=== PATIENT | male | born 1955 | race Caucasian/White ===

== ENCOUNTER 2016-12-06 16:53 | Emergency (ER) | payer MEDICAID, OTHER ==
[2016-12-06] MEDS ORDERED: HYDROcodone/ACETAMIN 5-325 MG* 1 TAB PO ONE (21:49)
--- NOTE | 2016-12-06 21:52 | ED ---
Skin Complaint - HPI Summary HPI Summary: Facial/head pain since Friday - burning worse at night. Blisters and scabs - newest blister was today. Denies ocular pain, change in vision. Not sure if he' s had chix pox but is from a family of 9 kids and sister who is w/ him today claims she had them. - History of Current Complaint Chief Complaint: EDRashSkinAbscess Time Seen by Provider: 12/06/16 18:33 Stated Complaint: FACIAL SWELLING Pain Intensity: 0 - Allergy/Home Medications Allergies/Adverse Reactions: Allergies Allergy/AdvReac Type Severity Reaction Status Date / Time No Known Allergies Allergy Verified 12/26/15 19:51 Home Medications: Home Medications Atorvastatin* [Lipitor*] 40 mg PO DAILY 12/06/16 [History Confirmed 12/06/16] amLODIPine TAB* [Norvasc 5 mg TAB*] 5 mg PO DAILY 12/06/16 [History Confirmed ] PMH/Surg Hx/FS Hx/Imm Hx Cardiovascular History: Reports: Hx Hypertension Infectious Disease History: No Infectious Disease History: Denies: Traveled Outside the [place] in Last 30 Days - Family History Known Family History: Positive: Unknown - Social History Alcohol Use: None Substance Use Type: Reports: None Smoking Status (MU): Never Smoked Tobacco Physical Exam Vital Signs On Initial Exam: Initial Vitals Temp Pulse Resp BP Pulse Ox 98.2 F 102 20 163/84 95 12/06/16 17:00 12/06/16 17:00 12/06/16 17:00 12/06/16 17:00 12/06/16 17:00 Procedures - Eye Procedure Alcaine Drops Administered: No - tetracaine Eye Irrigated w/ Saline (ccs): 3 - viewed w/ fluouresceine - no lesions Diagnostics - Vital Signs Vital Signs Temp Pulse Resp BP Pulse Ox 12/06/16 17:04 98.9 F 100 20 163/84 95 12/06/16 17:00 98.2 F 102 20 163/84 95 - Laboratory Lab Statement: Any lab studies that have been ordered have been reviewed, and results considered in the medical decision making process. Course/Dx - Diagnoses Provider Diagnoses: Herpes zoster virus infection of face and ear nerves - Physician Notifications Discussed Care Of Patient With: Dr. Belcher - no steroid eye drops necessary - f/u Friday Discharge - Discharge Plan Condition: Stable Disposition: HOME Prescriptions: HYDROcodone/ACETAMIN 5-325 MG* [[place] 5-325 TAB*] 1 tab PO Q6H PRN #20 tab MDD 4 PRN Reason: Pain ValACYclovir (*) [Valtrex 1 GM(*)] 1 gm PO TID #19 tab Patient Education Materials: Selena (ED) Referrals: Andrew Belcher MD [Medical Doctor] - Aravind Burr NP [Primary Care Provider] - Additional Instructions: Follow-up with eye doctor Friday - call in the morning at 8am to schedule your appointment Complete anti-viral medication (valtrex) *If your eye becomes painful, red, you have a change in vision, call Dr. Belcher and/or return to ED
[2016-12-06 22:19] VITALS: BP 161/89
[2016-12-06] MEDS ORDERED: ValACYclovir (*) 1 GM TAB PO ONE ×2 (23:15→23:16)
[2016-12-07] MEDS ORDERED: ValACYclovir (*) 1 GM TAB PO ONE ×2 (21:27→21:29)
== END 2016-12-06 22:19 | disposition home or self-care (01) ==
LOC: ED 16:53
DX: B02.9 Zoster without complications (principal); R51 Headache
CPT/HCPCS: 99282; A9270-GY

== ENCOUNTER 2020-06-21 12:01 | Inpatient (IN) ==
[2020-06-21 14:16] LABS: ABS Basophils 0.1 10^3/ul (0-0.2); ABS Lymphocytes 0.7 10^3/ul (1.0-4.8); ABS Monocytes 0.6 10^3/ul (0-0.8); ABS Neutrophils 5.6 10^3/ul (1.5-7.7); Eosinophil % 0.5 %; Hematocrit 41 % (42-52); Hemoglobin 14.5 g/dL (14.0-18.0); Lymphocyte % 10.2 %; Mean Corpuscular HGB Conc 36 g/dL (31-36); Mean Corpuscular Hemoglobin 30 pg (27-31); Mean Corpuscular Volume 84 fL (80-94); Mean Platelet Volume 9.7 fL (7.4-10.4); Platelet Count 237 10^3/uL (150-450); Red Blood Count 4.83 10^6 /uL (4.18-5.48); Red Cell Distribution Width 13 % (10-15)
[2020-06-21 14:46] LABS: Albumin 3.5 g/dL (3.2-5.2); Albumin/Globulin Ratio 1.1 (1-3); BUN/Creatinine Ratio 15.1 (8-20); C Reactive Protein 103.32 mg/L (<8.01); Calcium 9.2 mg/dL (8.6-10.3); EGFR African American 108.7 (>60); EGFR Non-African American 89.8 (>60); Globulin 3.1 g/dL (2-4); Potassium 3.5 mmol/L (3.5-5.0); Total Bilirubin 0.9 mg/dL (0.2-1.0); Total Protein 6.6 g/dL (6.4-8.9)
[2020-06-21] MEDS ORDERED: Enoxaparin 40 MG/0.4 ML SYR SUBCUT SCH (21:00)
[2020-06-21 22:43] LABS: Urine Appearance Clear; Urine Bilirubin Negative (Negative); Urine Blood Negative (Negative); Urine Color Yellow; Urine Glucose Negative (Negative); Urine Ketones Negative (Negative); Urine Nitrite Negative (Negative); Urine Protein 1+(30 mg/dL) (Negative); Urine Specific Gravity 1.013 (1.010-1.030); Urine Urobilinogen Positive (Negative)
[2020-06-21 22:47] LABS: Urine Bacteria Absent (Absent); Urine Red Blood Cell Trace(0-2/hpf) (Absent); Urine Squamous Epithelial Cell Present (Absent); Urine White Blood Cell Trace(0-5/hpf) (Absent)
[2020-06-22] MEDS ORDERED: Polyethylene Glycol 3350 17 GM PACKET PO PRN (00:33)
[2020-06-22] MEDS ORDERED: Dextrose 50% Syringe 50 ml 25 GM/50 ML SYRINGE IV PUSH PRN (00:33)
[2020-06-22 14:46] LABS: INR 1.27 (0.82-1.09)
[2020-06-22] MEDS: Senna TAB 8.6 mg TAB PO PRN (20:12)
[2020-06-23 05:09] LABS: ABS Basophils 0.1 10^3/ul (0-0.2); ABS Eosinophils 0.1 10^3/ul (0-0.6); ABS Lymphocytes 0.7 10^3/ul (1.0-4.8); ABS Monocytes 0.7 10^3/ul (0-0.8); Eosinophil % 1.4 %; Hematocrit 41 % (42-52); Hemoglobin 13.8 g/dL (14.0-18.0); Lymphocyte % 10.6 %; Mean Corpuscular HGB Conc 34 g/dL (31-36); Mean Corpuscular Hemoglobin 29 pg (27-31); Mean Corpuscular Volume 85 fL (80-94); Mean Platelet Volume 9.6 fL (7.4-10.4); Platelet Count 266 10^3/uL (150-450); Red Blood Count 4.75 10^6 /uL (4.18-5.48); Red Cell Distribution Width 13 % (10-15); White Blood Count 6.4 10^3/uL (3.5-10.8)
[2020-06-23 05:28] LABS: BUN/Creatinine Ratio 16.7 (8-20); Calcium 9.2 mg/dL (8.6-10.3); EGFR African American 111.7 (>60); EGFR Non-African American 92.3 (>60); Potassium 3.8 mmol/L (3.5-5.0)
[2020-06-23] MEDS ORDERED: Famotidine IV 10 MG/ML 2 ml VIAL (20 mg) IV ONE (06:00)
[2020-06-23] MEDS ORDERED: Buffered Lidocaine 1% SYRIN 1 ml INTRADERM ONE (06:00)
[2020-06-23] MEDS ORDERED: Lactated Ringers 1000 ml BAG 1,000 ML IV SCH (06:00)
[2020-06-23] MEDS ORDERED: Vancomycin 1,000 MG VIAL ONE (07:20)
[2020-06-23] MEDS ORDERED: Gelfoam 12-7 ADSORBABL SPONGE ONE (07:20)
[2020-06-23] MEDS ORDERED: Thrombin 5,000 UNITS 1 APPLIC KIT - topical use - TOPICAL ONE (07:20)
[2020-06-23] MEDS ORDERED: Bupivacaine 0.5% SDV PF 30ML VIAL ONE (07:21)
[2020-06-23] MEDS ORDERED: Bacitracin OINTMENT TUBE ONE (07:21)
[2020-06-23] MEDS ORDERED: ceFAZolin 1 GM ADVAN 1 GM ADDV.VIAL IVPB ONE (07:21)
[2020-06-23] MEDS ORDERED: Bacitracin INJECTION 50,000 UNITS ONE (07:21)
[2020-06-23] MEDS ORDERED: Midazolam 5 mg/5 ml VIAL 1 mg/ml 5 ml VIAL (5 mg) ONE (07:29)
[2020-06-23] MEDS ORDERED: Propofol 10 MG/ML 20 ML BTL ONE (07:29)
[2020-06-23] MEDS ORDERED: Ketamine HCL 50 mg/ml 10 ml VIAL (500 MG) ONE (07:29)
[2020-06-23] MEDS ORDERED: Ondansetron 4 mg VIAL 2 MG/ML 2 ml VIAL ONE (07:29)
[2020-06-23] MEDS ORDERED: Rocuronium 50 mg VIAL 10 mg/ml 5 ml VIAL (50 mg) ONE ×2 (07:29→09:20)
[2020-06-23] MEDS ORDERED: Phenylephrine 40 mcg/mL 10mL (400mcg) SYRINGE ONE (07:29)
[2020-06-23] MEDS ORDERED: Lidocaine 2% PF 5 ML VIAL ONE (07:29)
[2020-06-23] MEDS ORDERED: fentaNYL 250 mcg/5 ml 50 MCG/ML 5 ml VIAL (250 MCG) ONE (07:29)
[2020-06-23] MEDS ORDERED: Dexamethasone IV 4 MG/ML VIAL 1 ml VIAL ONE (07:29)
[2020-06-23] MEDS ORDERED: ceFAZolin 2 GM PREMIX 2 GM/50 ML BAG IVPB ONE (07:30)
[2020-06-23] MEDS ORDERED: Famotidine IV 10 MG/ML 2 ml VIAL (20 mg) ONE (08:10)
[2020-06-23] MEDS ORDERED: EPHEDrine (Pressors) 50 MG/ML VIAL ONE (09:31)
[2020-06-23] MEDS ORDERED: Ondansetron 4 mg VIAL 2 MG/ML 2 ml VIAL IV PRN ×2 (11:14→12:51)
[2020-06-23] MEDS ORDERED: Naloxone 0.4 mg VIAL 0.4 mg/ml 1 ml VIAL IV PRN (11:14)
[2020-06-23] MEDS ORDERED: HYDROmorphone 1 MG/1 ML SYRINGE IV PRN (11:14)
[2020-06-23] MEDS ORDERED: fentaNYL 100 mcg/2 ml 50 MCG/ML VIAL IV PRN (11:14)
[2020-06-23] MEDS ORDERED: HYDROmorphone 1 MG/1 ML SYRINGE ONE (11:42)
[2020-06-23] MEDS ORDERED: Sugammadex 500 MG/5 ML 5 ml VIAL IV PUSH ONE (11:45)
[2020-06-23] MEDS ORDERED: fentaNYL 100 mcg/2 ml 50 MCG/ML VIAL ONE (12:00)
[2020-06-23] MEDS ORDERED: Magnesium Hydroxide LIQ 30 ML UDC PO PRN (12:38)
[2020-06-23] MEDS ORDERED: Morphine 2 MG/ML SYRINGE IV PRN (12:55)
[2020-06-23] MEDS ORDERED: NS 0.9% w/ 20 Meq KCL 1000 ml 1,000 ML IV SCH (13:00)
[2020-06-23] MEDS: Acetaminophen IV 1 GM/100ML 100 ML IVPB SCH ×2 (14:02→22:44)
[2020-06-23] MEDS: Orphenadrine Citrate INJ 30 mg/ml 2 ml VIAL (60 mg) IV SCH (14:51)
[2020-06-23] MEDS: ceFAZolin 2 GM PREMIX 2 GM/50 ML BAG IVPB SCH (17:46)
[2020-06-23] MEDS ORDERED: Albuterol 2.5mg/3 ml (0.083%) NEB.SOLN INH SCH (18:00)
[2020-06-23] MEDS: Albuterol 2.5mg/3 ml (0.083%) NEB.SOLN INH SCH (20:15)
[2020-06-23] MEDS: Polyethylene Glycol 3350 17 GM PACKET PO SCH (21:37)
[2020-06-24] MEDS: ceFAZolin 2 GM PREMIX 2 GM/50 ML BAG IVPB SCH ×2 (01:25→09:06)
[2020-06-24] MEDS: Albuterol 2.5mg/3 ml (0.083%) NEB.SOLN INH SCH ×2 (02:10→06:53)
[2020-06-24] MEDS: Orphenadrine Citrate INJ 30 mg/ml 2 ml VIAL (60 mg) IV SCH (02:40)
[2020-06-24 04:53] LABS: ABS Lymphocytes 0.5 10^3/ul (1.0-4.8); ABS Monocytes 0.6 10^3/ul (0-0.8); ABS Neutrophils 5.7 10^3/ul (1.5-7.7); Eosinophil % 0.2 %; Hematocrit 31 % (42-52); Hemoglobin 10.5 g/dL (14.0-18.0); Lymphocyte % 7.5 %; Mean Corpuscular HGB Conc 34 g/dL (31-36); Mean Corpuscular Hemoglobin 29 pg (27-31); Mean Corpuscular Volume 85 fL (80-94); Mean Platelet Volume 9.5 fL (7.4-10.4); Platelet Count 242 10^3/uL (150-450); Red Cell Distribution Width 13 % (10-15); White Blood Count 6.9 10^3/uL (3.5-10.8)
[2020-06-24 05:07] LABS: BUN/Creatinine Ratio 14.5 (8-20); Calcium 7.7 mg/dL (8.6-10.3); EGFR African American 113.2 (>60); EGFR Non-African American 93.6 (>60); Potassium 3.9 mmol/L (3.5-5.0)
[2020-06-24] MEDS: Acetaminophen IV 1 GM/100ML 100 ML IVPB SCH (05:47)
[2020-06-24] MEDS ORDERED: Albuterol 2.5mg/3 ml (0.083%) NEB.SOLN INH PRN (06:53)
[2020-06-24] MEDS: Enoxaparin 40 MG/0.4 ML SYR SUBCUT SCH (09:08)
[2020-06-24] MEDS: Polyethylene Glycol 3350 17 GM PACKET PO SCH ×2 (09:08→20:40)
[2020-06-24 11:28] LABS: C Reactive Protein 66.38 mg/L (<8.01)
[2020-06-24] MEDS: cefTRIAXone 1 gm/50 mL NS BAG 1 GM/50 ML BAG IVPB SCH (15:26)
[2020-06-25 05:29] LABS: ABS Eosinophils 0.1 10^3/ul (0-0.6); ABS Lymphocytes 0.7 10^3/ul (1.0-4.8); ABS Monocytes 0.7 10^3/ul (0-0.8); ABS Neutrophils 4.8 10^3/ul (1.5-7.7); Eosinophil % 1.1 %; Hematocrit 31 % (42-52); Hemoglobin 10.6 g/dL (14.0-18.0); Lymphocyte % 11.8 %; Mean Corpuscular HGB Conc 34 g/dL (31-36); Mean Corpuscular Hemoglobin 29 pg (27-31); Mean Corpuscular Volume 86 fL (80-94); Mean Platelet Volume 9.3 fL (7.4-10.4); Platelet Count 257 10^3/uL (150-450); Red Blood Count 3.62 10^6 /uL (4.18-5.48); Red Cell Distribution Width 13 % (10-15); White Blood Count 6.3 10^3/uL (3.5-10.8)
[2020-06-25 05:47] LABS: BUN/Creatinine Ratio 19.8 (8-20); Calcium 8.1 mg/dL (8.6-10.3); EGFR African American 116.5 (>60); EGFR Non-African American 96.2 (>60); Potassium 3.8 mmol/L (3.5-5.0)
[2020-06-25] MEDS: Polyethylene Glycol 3350 17 GM PACKET PO SCH ×2 (09:47→20:58)
[2020-06-25] MEDS: Enoxaparin 40 MG/0.4 ML SYR SUBCUT SCH (09:48)
[2020-06-25] MEDS: cefTRIAXone 1 gm/50 mL NS BAG 1 GM/50 ML BAG IVPB SCH (15:46)
[2020-06-26] MEDS: Polyethylene Glycol 3350 17 GM PACKET PO SCH ×2 (08:35→20:41)
[2020-06-26] MEDS: Enoxaparin 40 MG/0.4 ML SYR SUBCUT SCH (08:35)
[2020-06-26] MEDS: cefTRIAXone 1 gm/50 mL NS BAG 1 GM/50 ML BAG IVPB SCH (15:29)
[2020-06-26] MEDS: Senna TAB 8.6 mg TAB PO PRN (20:42)
[2020-06-26 22:18] LABS: Urine Appearance Cloudy; Urine Bilirubin Negative (Negative); Urine Blood 2+ (Negative); Urine Color Yellow; Urine Glucose Negative (Negative); Urine Ketones Negative (Negative); Urine Nitrite Negative (Negative); Urine Protein 1+(30 mg/dL) (Negative); Urine Specific Gravity 1.019 (1.010-1.030); Urine Urobilinogen Positive (Negative)
[2020-06-26 22:30] LABS: Urine Bacteria Absent (Absent); Urine Red Blood Cell 2+(6-10/hpf) (Absent); Urine White Blood Cell Trace(0-5/hpf) (Absent)
[2020-06-27] MEDS: Enoxaparin 40 MG/0.4 ML SYR SUBCUT SCH (08:56)
[2020-06-27] MEDS: Polyethylene Glycol 3350 17 GM PACKET PO SCH ×2 (08:57→20:56)
[2020-06-27] MEDS: cefTRIAXone 1 gm/50 mL NS BAG 1 GM/50 ML BAG IVPB SCH (10:14)
[2020-06-28] MEDS: Enoxaparin 40 MG/0.4 ML SYR SUBCUT SCH (07:54)
[2020-06-28] MEDS: Polyethylene Glycol 3350 17 GM PACKET PO SCH (07:55)
[2020-06-28 07:56] VITALS: BP 147/85
[2020-06-28] MEDS: cefTRIAXone 1 gm/50 mL NS BAG 1 GM/50 ML BAG IVPB SCH (08:10)
[2020-06-28] MEDS ORDERED: PEG 3000 GI LAVAGE 1 GALLON PO ONE (08:33)
== END 2020-06-28 11:10 | DRG 310 ==
LOC: ED 12:01 → SSU 20:18
PROVIDERS: ADMIT Internal Medicine; ATTEND Internal Medicine

== ENCOUNTER 2020-06-28 08:18 | Inpatient (IN) ==
[2020-06-28] MEDS ORDERED: Lactulose 30 ml UDC PO PRN (13:06)
[2020-06-28] MEDS ORDERED: Magnesium Hydroxide LIQ 30 ML UDC PO PRN (13:06)
[2020-06-28] MEDS ORDERED: Senna TAB 8.6 mg TAB PO PRN (13:06)
[2020-06-28] MEDS ORDERED: Dextrose 50% Syringe 50 ml 25 GM/50 ML SYRINGE IV PUSH PRN (13:15)
[2020-06-28] MEDS ORDERED: Lactulose 30 ml UDC PO ONE (21:10)
[2020-06-29] MEDS: Enoxaparin 40 MG/0.4 ML SYR SUBCUT SCH (08:09)
[2020-06-29] MEDS: cefTRIAXone 1 gm/50 mL NS BAG 1 GM/50 ML BAG IVPB SCH (08:10)
[2020-06-30 04:32] LABS: Albumin/Globulin Ratio 0.9 (1-3); BUN/Creatinine Ratio 20.3 (8-20); Calcium 8.9 mg/dL (8.6-10.3); EGFR African American 129.3 (>60); EGFR Non-African American 106.8 (>60); Globulin 3.2 g/dL (2-4); Potassium 3.9 mmol/L (3.5-5.0); Total Bilirubin 0.4 mg/dL (0.2-1.0); Total Protein 6.2 g/dL (6.4-8.9)
[2020-06-30] MEDS: Enoxaparin 40 MG/0.4 ML SYR SUBCUT SCH (08:08)
[2020-06-30] MEDS: cefTRIAXone 1 gm/50 mL NS BAG 1 GM/50 ML BAG IVPB SCH (10:10)
[2020-07-01] MEDS: Enoxaparin 40 MG/0.4 ML SYR SUBCUT SCH (07:35)
[2020-07-02] MEDS: Enoxaparin 40 MG/0.4 ML SYR SUBCUT SCH (08:11)
[2020-07-03] MEDS: Enoxaparin 40 MG/0.4 ML SYR SUBCUT SCH (08:18)
[2020-07-04] MEDS: Enoxaparin 40 MG/0.4 ML SYR SUBCUT SCH (08:33)
[2020-07-05] MEDS: Enoxaparin 40 MG/0.4 ML SYR SUBCUT SCH (08:16)
[2020-07-06] MEDS: Enoxaparin 40 MG/0.4 ML SYR SUBCUT SCH (08:33)
[2020-07-06 16:28] LABS: Urine Appearance Clear; Urine Bilirubin Negative (Negative); Urine Blood 2+ (Negative); Urine Color Yellow; Urine Glucose Negative (Negative); Urine Ketones Negative (Negative); Urine Nitrite Negative (Negative); Urine Protein Negative (Negative); Urine Urobilinogen Negative (Negative)
[2020-07-06 16:30] LABS: Urine Bacteria Absent (Absent); Urine Red Blood Cell 2+(6-10/hpf) (Absent); Urine White Blood Cell Trace(0-5/hpf) (Absent)
[2020-07-06] MEDS: Nystatin TOP POWDER 15 GM BTL TOPICAL SCH (22:11)
[2020-07-07 07:35] LABS: ABS Basophils 0.1 10^3/ul (0-0.2); ABS Eosinophils 0.2 10^3/ul (0-0.6); ABS Lymphocytes 1.4 10^3/ul (1.0-4.8); ABS Monocytes 0.9 10^3/ul (0-0.8); ABS Neutrophils 5.6 10^3/ul (1.5-7.7); Eosinophil % 2.4 %; Hematocrit 34 % (42-52); Hemoglobin 11.5 g/dL (14.0-18.0); Lymphocyte % 16.7 %; Mean Corpuscular HGB Conc 34 g/dL (31-36); Mean Corpuscular Hemoglobin 29 pg (27-31); Mean Corpuscular Volume 87 fL (80-94); Mean Platelet Volume 8.7 fL (7.4-10.4); Platelet Count 311 10^3/uL (150-450); Red Blood Count 3.92 10^6 /uL (4.18-5.48); Red Cell Distribution Width 14 % (10-15); White Blood Count 8.2 10^3/uL (3.5-10.8)
[2020-07-07 07:56] LABS: Albumin 3.2 g/dL (3.2-5.2); Albumin/Globulin Ratio 0.9 (1-3); BUN/Creatinine Ratio 17.7 (8-20); Calcium 8.4 mg/dL (8.6-10.3); EGFR African American 119.9 (>60); EGFR Non-African American 99.1 (>60); Globulin 3.5 g/dL (2-4); Potassium 4.2 mmol/L (3.5-5.0); Total Bilirubin 0.6 mg/dL (0.2-1.0); Total Protein 6.7 g/dL (6.4-8.9)
[2020-07-07] MEDS: Enoxaparin 40 MG/0.4 ML SYR SUBCUT SCH (08:01)
[2020-07-07] MEDS: Nystatin TOP POWDER 15 GM BTL TOPICAL SCH ×2 (08:04→20:17)
[2020-07-08] MEDS: Enoxaparin 40 MG/0.4 ML SYR SUBCUT SCH (08:41)
[2020-07-08] MEDS: Nystatin TOP POWDER 15 GM BTL TOPICAL SCH ×2 (09:30→19:40)
[2020-07-09] MEDS: Enoxaparin 40 MG/0.4 ML SYR SUBCUT SCH (07:51)
[2020-07-09] MEDS: Nystatin TOP POWDER 15 GM BTL TOPICAL SCH ×2 (07:52→19:29)
[2020-07-10] MEDS: Enoxaparin 40 MG/0.4 ML SYR SUBCUT SCH (08:17)
[2020-07-10] MEDS: Nystatin TOP POWDER 15 GM BTL TOPICAL SCH ×2 (09:40→20:50)
[2020-07-11] MEDS: Enoxaparin 40 MG/0.4 ML SYR SUBCUT SCH (08:12)
[2020-07-11] MEDS: Nystatin TOP POWDER 15 GM BTL TOPICAL SCH ×2 (10:53→19:19)
[2020-07-12] MEDS: Enoxaparin 40 MG/0.4 ML SYR SUBCUT SCH (09:48)
[2020-07-12] MEDS: Nystatin TOP POWDER 15 GM BTL TOPICAL SCH ×2 (10:45→20:31)
[2020-07-13 06:15] VITALS: BP 111/70
[2020-07-13] MEDS: Nystatin TOP POWDER 15 GM BTL TOPICAL SCH (08:45)
[2020-07-13] MEDS: Enoxaparin 40 MG/0.4 ML SYR SUBCUT SCH (08:48)
== END 2020-07-13 13:50 | disposition home health service (06) | DRG 862 ==
LOC: PMRU 12:00
PROVIDERS: ADMIT Physical Medicine & Rehabilitation; ATTEND Physical Medicine & Rehabilitation